=== PATIENT | male | born 1995 | race Two or more races ===

== ENCOUNTER 2018-10-04 11:36 | Emergency (ER) | payer SELFPAY ==
[2018-10-04] MEDS ORDERED: Tetan/Diph/Pertus SYR(Tdap)* 0.5 ML SYR(BOOSTRIX) use SYR IM ONE (13:46)
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
[2018-10-04 14:16] VITALS: BP 122/64
== END 2018-10-04 14:15 | disposition home or self-care (01) ==
LOC: ED 11:36
DX: S61.442A Puncture wound with foreign body of left hand, initial encounter (principal); W34.010A Accidental discharge of airgun, initial encounter; Y92.9 Unspecified place or not applicable; Z23 Encounter for immunization
CPT/HCPCS: 90471; 90715; 99282

== ENCOUNTER 2018-10-15 06:19 | Day surgery (SDC) | payer OTHER ==
[~2018-10-15 06:19] MED LIST: Buffered Lidocaine 1% SYRIN* 1 ML/SYRINGE INTRADERM ONE; Dexamethasone IV* 4 MG/ML 1 ML (4 MG) IV SLOW PU ONE; Famotidine IV* 10 MG/ML 2 ML (20 mg) IV ONE; Lactated Ringers 1000 ML Bag* 1,000 ML IV SCH; Lidocaine 1% MPF wEPI 200,000* 30 ML SDV ONE; Sodium Bicarbonate 8.4% IV* 50 ML VIAL ONE
[2018-10-15] MEDS ORDERED: Bupivacaine 0.25% SDV PF* 10 ML VIAL INJ ONE (07:09)
[2018-10-15 08:24] VITALS: BP 122/68
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
== END 2018-10-15 08:37 | disposition home or self-care (01) ==
LOC: OREAST 06:19
PROVIDERS: ATTEND Orthopaedic Surgery Hand Surgery
DX: S61.442A Puncture wound with foreign body of left hand, initial encounter (principal); W34.010A Accidental discharge of airgun, initial encounter; Y92.9 Unspecified place or not applicable
CPT/HCPCS: 76000; 88300; J2001; J3490